=== PATIENT | male | born 1940 | race Caucasian/White ===

== ENCOUNTER 2017-01-08 23:49 | Inpatient (IN) | payer MEDICARE ==
[~2017-01-08] VITALS: Ht 188 cm; Wt 90.4 kg
[2017-01-08 23:59] VITALS: BP 102/67; PULSE 129; RESP 20; TEMP 102.3; O2SAT 91
[2017-01-09] VITALS (18 sets, daily range): BP systolic 85–140; BP diastolic 52–86; PULSE 57–106; RESP 14–24; TEMP 98.1–102.6; O2SAT 91–98
[2017-01-09] MEDS ORDERED: FINA5TAB2 PO (00:23)
[2017-01-09] MEDS ORDERED: TAMS0.4C4 PO (00:23)
[2017-01-09] MEDS: ACETAMINOPHEN 325 MG TAB PO ONE ×2 (00:45→01:22)
[2017-01-09] MEDS: ONDANSETRON HCL 4 MG/2 ML VIAL IV ONE ×2 (00:45→01:22)
--- NOTE | 2017-01-09 00:48 | PD ---
HPI Chief Complaint: Fever Time Seen by Provider: 00:24 Travel History International Travel<30 days: No Contact w/Intl Traveler<30days: No Traveled to known affect area: No History of Present Illness HPI The patient is a 76-year-old male that began shaking this afternoon. He also noted hematuria. He has a minimal cough. He denies any abdominal pain, diarrhea, chest pain, shortness of breath, dysuria. He does have frequency of urination. He does have an enlarged prostate. PFSH Past Medical History Cardiovascular Problems: Yes (HTN) Tetanus Vaccination: < 5 Years Influenza Vaccination: Yes Social History Alcohol Use: Yes (2 drinks daily) Tobacco Use: No Substance Use: No Allergies-Medications (Allergen,Severity, Reaction): Coded Allergies: Penicillin (Verified Allergy, Mild, Hives, 01/09/17) Patient stated hive without respiratory effects. Reported Meds & Prescriptions Reported Meds & Active Scripts Active Reported Hydrochlorothiazide 12.5 Mg Cap 12.5 Mg PO DAILY Finasteride 5 Mg Tab 5 Mg PO DAILY Do not crush. Tamsulosin (Tamsulosin HCl) 0.4 Mg Cap 0.4 Mg PO DAILY Review of Systems Except as stated in HPI: all other systems reviewed are Neg Physical Exam Narrative GENERAL: The patient is alert, oriented 3, feeling generally weak and has barely enough strength to sit up in bed. His vital signs show temperature 102.3 with blood pressure 102/67 and heart rate of 129. Oximetry is 91%. Repeat vital signs reveal an oximetry of 94% and blood pressure 112/74 with heart rate of 106. SKIN: Warm and dry. No skin rash is seen. HEAD: Atraumatic. Normocephalic. EYES: Pupils equal and round. No scleral icterus. No injection or drainage. ENT: No nasal bleeding or discharge. Mucous membranes pink and moist. The tympanic membranes are clear and the throat is clear without erythema, abscess or exudate. NECK: Trachea midline. No JVD. There is no meningismus and the patient flexes neck fully without any hesitation. CARDIOVASCULAR: Regular rate and rhythm. No murmur appreciated. RESPIRATORY: No accessory muscle use. Clear to auscultation. Breath sounds equal bilaterally. GASTROINTESTINAL: Abdomen soft, non-tender, nondistended. Hepatic and splenic margins not palpable. No guarding or rebound is present. MUSCULOSKELETAL: No obvious deformities. No clubbing. No cyanosis. No edema. NEUROLOGICAL: Awake and alert. No obvious cranial nerve deficits. Motor grossly within normal limits. Normal speech. PSYCHIATRIC: Appropriate mood and affect; insight and judgment normal. Data Data Last Documented VS Vital Signs Date Time Temp Pulse Resp B/P Pulse Ox O2 Delivery O2 Flow Rate FiO2 01/09/17 01:48 106 22 114/75 92 Nasal Cannula 2 01/09/17 00:43 101.2 Orders Electrocardiogram (01/09/17 00:41) Complete Blood Count With Diff (01/09/17 00:41) Comprehensive Metabolic Panel (01/09/17 00:41) Lactic Acid Sepsis Protocol (01/09/17 00:41) Lipase (01/09/17 00:41) Ckmb (Isoenzyme) Profile (01/09/17 00:41) Troponin I (01/09/17 00:41) Urinalysis - C+S If Indicated (01/09/17 00:41) Influenzae A/B Antigen (01/09/17 00:41) Blood Culture (01/09/17 00:41) Chest, Single Ap (01/09/17 00:41) Ecg Monitoring (01/09/17 00:41) Iv Access Insert/Monitor (01/09/17 00:41) Oximetry (01/09/17 00:41) Oxygen Administration (01/09/17 00:41) Acetaminophen (Tylenol) (01/09/17 00:45) Ondansetron Inj (Zofran Inj) (01/09/17 00:45) Urine Culture (01/09/17 00:57) Potassium Chloride (Kcl) (01/09/17 02:15) Sodium Chlor 0.9% 1000 Ml Inj (Ns 1000 M (01/09/17 02:15) Labs Laboratory Tests Test 01/09/17 01/09/17 00:57 01:07 White Blood Count 14.4 TH/MM3 Red Blood Count 4.86 MIL/MM3 Hemoglobin 15.1 GM/DL Hematocrit 45.3 % Mean Corpuscular Volume 93.2 FL Mean Corpuscular Hemoglobin 31.1 PG Mean Corpuscular Hemoglobin 33.4 % Concent Red Cell Distribution Width 12.6 % Platelet Count 169 TH/MM3 Mean Platelet Volume 7.3 FL Neutrophils (%) (Auto) 89.3 % Lymphocytes (%) (Auto) 2.8 % Monocytes (%) (Auto) 4.3 % Eosinophils (%) (Auto) 0.0 % Basophils (%) (Auto) 3.6 % Neutrophils # (Auto) 12.9 TH/MM3 Lymphocytes # (Auto) 0.4 TH/MM3 Monocytes # (Auto) 0.6 TH/MM3 Eosinophils # (Auto) 0.0 TH/MM3 Basophils # (Auto) 0.5 TH/MM3 CBC Comment AUTO DIFF Differential Comment AUTO DIFF CONFIRMED Platelet Estimate NORMAL Platelet Morphology Comment NORMAL Red Cell Morphology Comment NORMAL Urine Color YELLOW Urine Turbidity CLOUDY Urine pH 6.5 Urine Specific [place] 1.017 Urine Protein NEG mg/dL Urine Glucose (UA) NEG mg/dL Urine Ketones TRACE mg/dL Urine Occult Blood MOD Urine Nitrite NEG Urine Bilirubin NEG Urine Leukocyte Esterase MOD Urine RBC 4-9 /hpf Urine WBC 25-49 /hpf Urine Squamous Epithelial 6-8 /hpf Cells Urine Bacteria MANY /hpf Microscopic Urinalysis Comment CULTURE INDICATED Sodium Level 137 MEQ/L Potassium Level 3.1 MEQ/L Chloride Level 97 MEQ/L Carbon Dioxide Level 28.8 MEQ/L Anion Gap 11 MEQ/L Blood Urea Nitrogen 14 MG/DL Creatinine 1.20 MG/DL Estimat Glomerular Filtration 59 ML/MIN Rate Random Glucose 114 MG/DL Calcium Level 8.6 MG/DL Total Bilirubin 1.3 MG/DL Aspartate Amino Transf 13 U/L (AST/SGOT) Alanine Aminotransferase 18 U/L (ALT/SGPT) Alkaline Phosphatase 67 U/L Total Creatine Kinase 44 U/L Troponin I 0.02 NG/ML Total Protein 7.3 GM/DL Albumin 3.4 GM/DL Lipase 80 U/L Lactic Acid Level 2.8 mmol/L [facility] Medical Decision Making Medical Screen Exam Complete: Yes Emergency Medical Condition: Yes Medical Record Reviewed: Yes Interpretation(s) EKG shows sinus tachycardia with a rate of [address] elevation or depression. The CBC shows a white count of 14,400 with 89% neutrophils. The complete metabolic profile shows potassium of 3.1, GFR 59, lactic acid of 2.8, total bilirubin of 1.3 but is otherwise unremarkable. The lipase is normal. The urine shows cloudy turbidity, trace ketones, moderate occult blood, moderate leukocyte esterase with 4-9 red cells and 25-49 white cells and many bacteria and culture is indicated. Differential Diagnosis Sepsis, urosepsis, pneumonia, dehydration, myocardial infarction, renal insufficiency, electrolyte disorder Narrative Course The patient has urosepsis. Plan: The patient is nauseated when he sits up. He also is generally weak and cannot sit up for very long. The patient needs admission for IV hydration, IV antibiotics and general care. The family has no local primary care physician, they're from [place]. Procedures EKG Prior to Arrival: No Sepsis Criteria SIRS Criteria (2 or more): Temp > 100.9 or < 96.8, Heart rate over 90, RR > 20 or PaCO2 < 32, WBC > 60272, < 4000 or > 10% bands Sepsis Criteria (SIRS+source): Infect source susp/known Severe Sepsis (+one): Lactate >2 Physician Communication Physician Communication I discussed the patient with Dr. Daniel, the patient will be admitted to her. Diagnosis Primary Impression: Sepsis Additional Impressions: Hypokalemia Pyelonephritis Jose Jones MD Jan 09, 2017 00:48
[2017-01-09] MEDS ORDERED: HYDR12.57 PO (00:49)
[2017-01-09 01:16] LABS: AUTOMATED NEUTROPHIL # 12.9 TH/MM3 (1.8-7.7); BASOPHIL # 0.5 TH/MM3 (0-0.2); BASOPHIL % 3.6 % (0.0-2.0); HEMATOCRIT 45.3 % (39.0-51.0); LYMPH % 2.8 % (9.0-44.0); LYMPHOCYTE # 0.4 TH/MM3 (1.0-4.8); MEAN CELL VOLUME 93.2 FL (80.0-100.0); MEAN CORPUSCULAR HEMOGLOBIN 31.1 PG (27.0-34.0); MEAN CORPUSCULAR HGB CONC 33.4 % (32.0-36.0); MONO % 4.3 % (0.0-8.0); NEUT % 89.3 % (16.0-70.0); PLATELET COUNT 169 TH/MM3 (150-450); RED BLOOD COUNT 4.86 MIL/MM3 (4.50-5.90); RED CELL DISTRIBUTION WIDTH 12.6 % (11.6-17.2); WHITE BLOOD COUNT 14.4 TH/MM3 (4.0-11.0)
[2017-01-09 01:17] LABS: GLUCOSE,URINE NEG (NEG); KETONE, URINE TRACE mg/dL (NEG); NITRITE,URINE NEG (NEG); PH, URINE 6.5 (5.0-8.5)
[2017-01-09 01:23] LABS: HEMO FLAGS AUTO DIFF
[2017-01-09 01:25] LABS: CHLORIDE 97 MEQ/L (98-107); POTASSIUM 3.1 MEQ/L (3.5-5.1); SODIUM (NA) 137 MEQ/L (136-145)
--- NOTE | 2017-01-09 01:27 | RADHPO ---
EXAM DATE/TIME: 01/09/2017 01:20 [place] COMPARISON: No previous studies available for comparison. INDICATIONS : Fever starting today MEDICAL HISTORY : None. SURGICAL HISTORY : None. ENCOUNTER: Initial ACUITY: 1 day PAIN SCORE: 0/10 LOCATION: Bilateral chest FINDINGS: A single view of the chest demonstrates the lungs to be symmetrically aerated without evidence of mas s, infiltrate or effusion. The cardiomediastinal contours are unremarkable. Osseous structures are intact. CONCLUSION: No acute disease. Rick Burr MD on January 09, 2017 at 1:25 Board Certified Radiologist. This report was verified electronically.
[2017-01-09 01:29] LABS: ANION GAP 11 MEQ/L (5-15); BICARBONATE 28.8 MEQ/L (21.0-32.0); BLOOD UREA NITROGEN 14 MG/DL (7-18); BLOOD, URINE MOD (NEG)
[2017-01-09 01:30] LABS: BACTERIA, URINE MANY /hpf; COMMENT (UR) CULTURE INDICATED; CULTURE IF INDICATED CULTURE INDICATED; URINE COLOR YELLOW (YELLW/STRAW)
[2017-01-09 01:32] LABS: ALT (GPT) 18 U/L (12-78); AST (GOT) 13 U/L (15-37); GLOMERULAR FILTRATION RATE 59 ML/MIN (>89)
[2017-01-09 01:33] LABS: TOTAL BILIRUBIN ADULT 1.3 MG/DL (0.2-1.0)
[2017-01-09 01:35] LABS: ALKALINE PHOSPHATASE 67 U/L (45-117)
[2017-01-09 01:37] LABS: CREATINE KINASE 44 U/L (39-308); PLATELET ESTIMATE SMEAR NORMAL (NORMAL); PLATELET MORPHOLOGY NORMAL (NORMAL); SCAN/DIFF AUTO DIFF CONFIRMED
[2017-01-09] MEDS: SODIUM CHLOR 0.9% 1000 ML INJ 1,000 ML IV SCH ×5 (02:11→22:21)
[2017-01-09] MEDS ORDERED: ACETAMINOPHEN 325 MG TAB PO PRN (02:15)
[2017-01-09] MEDS ORDERED: ONDANSETRON HCL 4 MG/2 ML VIAL IVP PRN (02:15)
[2017-01-09] MEDS ORDERED: ACETAMINOPHEN/HYDROcodone 325 MG/7.5 MG TAB PO PRN (02:15)
[2017-01-09] MEDS ORDERED: ACETAMINOPHEN/HYDROcodone 325 MG/5 MG TAB PO PRN (02:15)
[2017-01-09] MEDS ORDERED: BISACODYL 10 MG SUPP PR PRN (02:15)
[2017-01-09] MEDS ORDERED: LEVOFLOXACIN 750 MG PREMIX INJ 150 ML IV ONE (02:15)
[2017-01-09] MEDS ORDERED: POTASSIUM CHLORIDE 20 MEQ CONTROLLED RELEASE TAB PO ONE ×2 (02:15→02:30)
[2017-01-09 03:10] LABS: LACTIC ACID GHOST NOT REPORTABLE
[2017-01-09] MEDS ORDERED: SODIUM CHLOR 0.9% 1000 ML INJ 1,000 ML IV ONE (03:45)
[2017-01-09] MEDS ORDERED: MISCELLANEOUS NURSING INFORMATION XX SCH (03:45)
[2017-01-09] MEDS ORDERED: CHLORHEXIDINE GLUCONATE 2 % 1 PACK (2 CLOTHS) TOP PRN (03:45)
[2017-01-09] MEDS ORDERED: CHLORHEXIDINE GLUCONATE 2 % 1 PACK (2 CLOTHS) TOP SCH (04:00)
[2017-01-09] MEDS: SODIUM CHLORIDE 0.9% FLUSH 5 ML FLUSH FLUSH SCH ×2 (08:17→22:21)
--- NOTE | 2017-01-09 13:39 | HHI.HP ---
[facility] Service [facility] Primary Care Physician Non-Staff Admission Diagnosis sepsis, pyelonephritis, dehydration, electrolyte disorder Diagnoses: Chief Complaint: Fever Travel History International Travel<30 Days: No Contact w/Intl Traveler <30 Da: No Traveled to Known Affected Are: No Sepsis Criteria SIRS Criteria (2 or more): Temp > 100.9 or < 96.8, Heart rate over 90, WBC > 20493, < 4000 or > 10% bands Sepsis Criteria (SIRS+source): Infect source susp/known Severe Sepsis (+one): Hypotension Criteria Outcome: Meets sepsis criteria History of Present Illness Patient is a very pleasant 76-year-old gentleman with a history of benign prostatic hyperplasia and episodes of urinary retention. For the last 24 hours patient had some chills and fever at home with associated hematuria and bladder discomfort. He came to the emergency room and was found to be febrile at 102.3 , hypotensive with elevated lactic acid and elevated white cell count. Patient appears to have severe sepsis with urinary tract infection. Patient was admitted over night with antibiotics and IV fluids and appears to have improved quite nicely. He has no further chills and his temperature is improved. Patient does have no other complaints. Pain in his bladder was mild and improved with urination. Review of Systems Constitutional: COMPLAINS OF: Fever, Chills, Dizziness, DENIES: Diaphoretic episodes, Fatigue, Weight gain, Weight loss, Change in appetite, Night Sweats Endocrine: DENIES: Heat/cold intolerance, Polydipsia, Polyuria, Polyphagia Eyes: DENIES: Blurred vision, Diplopia, Eye inflammation, Eye pain, Vision loss , Photosensitivity, Double Vision Ears, nose, mouth, throat: DENIES: Tinnitus, Hearing loss, Vertigo, Nasal discharge, Oral lesions, Throat pain, Hoarseness, Ear Pain, Running Nose, Epistaxis, Sinus Pain, Toothache, Odynophagia Respiratory: DENIES: Apneas, Cough, Snoring, Wheezing, Hemoptysis, Sputum production, Shortness of breath Cardiovascular: DENIES: Chest pain, Palpitations, Syncope, Dyspnea on Exertion , PND, Lower Extremity Edema, Orthopnea, Claudication Genitourinary: COMPLAINS OF: Urinary frequency, Urinary incontinence, Urgency, Hematuria Musculoskeletal: DENIES: Joint pain, Muscle aches, Stiffness, Joint Swelling, Back pain, Neck pain Integumentary: DENIES: Abnormal pigmentation, Nail changes, Pruritus, Rash Hematologic/lymphatic: DENIES: Bruising, Lymphadenopathy Immunologic/allergic: DENIES: Eczema, Urticaria Neurologic: DENIES: Abnormal gait, Headache, Localized weakness, Paresthesias, Seizures, Speech Problems, Tremor, Poor Balance Psychiatric: DENIES: Anxiety, Confusion, Mood changes, Depression, Hallucinations, Agitation, Suicidal Ideation, Homicidal Ideation, Delusions Past Family Social History Past Medical History benign prostatic hyperplasia Past Surgical History Orthopedic Reported Medications Reviewed in the medical record Allergies: Coded Allergies: Penicillin (Verified Allergy, Mild, Hives, 01/09/17) Patient stated hive without respiratory effects. Active Ordered Medications Reviewed in the medical record Family History Father had colon cancer Social History From [place], visiting, no tobacco or alcohol dependency, Physical Exam Vital Signs Vital Signs Date Time Temp Pulse Resp B/P Pulse Ox O2 Delivery O2 Flow Rate FiO2 01/09/17 12:59 63 17 110/78 96 Nasal Cannula 2 01/09/17 11:49 98.1 60 14 90/52 98 Nasal Cannula 2 01/09/17 10:41 Room Air 2 01/09/17 10:18 98.4 61 17 140/68 97 Room Air 2 01/09/17 08:55 64 14 107/64 98 Nasal Cannula 2 01/09/17 08:28 57 17 85/63 97 Nasal Cannula 2 01/09/17 07:10 98.2 64 17 95/62 93 Nasal Cannula 2 01/09/17 07:10 93 Nasal Cannula 2 01/09/17 07:10 64 93 Nasal Cannula 2 01/09/17 04:43 98.6 77 16 99/64 95 Nasal Cannula 2 01/09/17 04:40 16 95 Nasal Cannula 2 01/09/17 03:29 99.7 90 20 94/61 91 Nasal Cannula 2 01/09/17 02:43 90 20 101/61 95 Nasal Cannula 2 01/09/17 01:48 106 22 114/75 92 Nasal Cannula 2 01/09/17 01:47 92 Nasal Cannula 2 01/09/17 01:42 106 20 107/66 94 Nasal Cannula 2 01/09/17 01:33 102.6 104 20 114/75 95 Nasal Cannula 2 01/09/17 00:43 101.2 105 20 137/86 97 Room Air 01/09/17 00:24 94 Room Air 01/09/17 00:11 106 24 112/74 94 01/08/17 23:59 102.3 129 20 102/67 91 Physical Exam GENERAL: This is a well-nourished, well-developed patient, in no apparent distress. SKIN: No rashes, ecchymoses or lesions. Cool and dry. HEAD: Atraumatic. Normocephalic. No temporal or scalp tenderness. EYES: Pupils equal round and reactive. Extraocular motions intact. No scleral icterus. No injection or drainage. ENT: Nose without bleeding, purulent drainage or septal hematoma. Throat without erythema, tonsillar hypertrophy or exudate. Uvula midline. Airway patent. NECK: Trachea midline. No JVD or lymphadenopathy. Supple, nontender, no meningeal signs. CARDIOVASCULAR: Regular rate and rhythm without murmurs, gallops, or rubs. RESPIRATORY: Clear to auscultation. Breath sounds equal bilaterally. No wheezes , rales, or rhonchi. GASTROINTESTINAL: Abdomen soft, non-tender, nondistended. No hepato-splenomegaly , or palpable masses. No guarding. MUSCULOSKELETAL: Extremities without clubbing, cyanosis, or edema. No joint tenderness, effusion, or edema noted. No calf tenderness. Negative Homans sign bilaterally. NEUROLOGICAL: Awake and alert. Cranial nerves II through XII intact. Motor and sensory grossly within normal limits. Five out of 5 muscle strength in all muscle groups. Normal speech. Laboratory Laboratory Tests Test 01/09/17 01/09/17 01/09/17 00:57 01:07 03:42 White Blood Count 14.4 Red Blood Count 4.86 Hemoglobin 15.1 Hematocrit 45.3 Mean Corpuscular Volume 93.2 Mean Corpuscular Hemoglobin 31.1 Mean Corpuscular Hemoglobin 33.4 Concent Red Cell Distribution Width 12.6 Platelet Count 169 Mean Platelet Volume 7.3 Neutrophils (%) (Auto) 89.3 Lymphocytes (%) (Auto) 2.8 Monocytes (%) (Auto) 4.3 Eosinophils (%) (Auto) 0.0 Basophils (%) (Auto) 3.6 Neutrophils # (Auto) 12.9 Lymphocytes # (Auto) 0.4 Monocytes # (Auto) 0.6 Eosinophils # (Auto) 0.0 Basophils # (Auto) 0.5 CBC Comment AUTO DIFF Differential Comment AUTO DIFF CONFIRMED Platelet Estimate NORMAL Platelet Morphology Comment NORMAL Red Cell Morphology Comment NORMAL Urine Color YELLOW Urine Turbidity CLOUDY Urine pH 6.5 Urine Specific [place] 1.017 Urine Protein NEG Urine Glucose (UA) NEG Urine Ketones TRACE Urine Occult Blood MOD Urine Nitrite NEG Urine Bilirubin NEG Urine Leukocyte Esterase MOD Urine RBC 4-9 Urine WBC 25-49 Urine Squamous Epithelial 6-8 Cells Urine Bacteria MANY Microscopic Urinalysis Comment CULTURE INDICATED Sodium Level 137 Potassium Level 3.1 Chloride Level 97 Carbon Dioxide Level 28.8 Anion Gap 11 Blood Urea Nitrogen 14 Creatinine 1.20 Estimat Glomerular Filtration 59 Rate Random Glucose 114 Calcium Level 8.6 Total Bilirubin 1.3 Aspartate Amino Transf 13 (AST/SGOT) Alanine Aminotransferase 18 (ALT/SGPT) Alkaline Phosphatase 67 Total Creatine Kinase 44 Troponin I 0.02 Total Protein 7.3 Albumin 3.4 Lipase 80 Lactic Acid Level 2.8 1.2 Date/Time Procedure Status Source Growth 01/09/17 01:05 Aerobic Blood Culture Received Blood Peripheral Pending 01/09/17 01:05 Anaerobic Blood Culture Received Blood Peripheral Pending 01/09/17 00:57 Urine Culture Received Urine Clean Catch Pending 01/09/17 00:57 Influenza Types A,B Antigen (BETSY) - Final Complete Nasal Aspirate NEGATIVE FOR FLU A AND B ANTIGEN.... Result Diagram: 01/09/17 0057 01/09/17 005 Imaging Last Impressions Chest X-Ray 01/09/17 0041 Signed Impressions: Service Date/Time: Monday, January 09, 2017 01:20 - CONCLUSION: No acute disease. Rick Burr MD Septic Shock Reassessment Heart: Regular rate and rhythm Lungs: Clear Skin: Warm Peripheral Pulses: Bounding Right Radial Bounding Left Radial Bounding Right Popliteal Bounding Left Popliteal Bounding Right Dorsalis Pedis Bounding Left Dorsalis Pedis Bounding Right Posterior Tibial Bounding Left Posterior Tibial Capillary Refill: Brisk Assessment and Plan Problem List: (1) Sepsis ICD Code: A41.9 Status: Acute Plan: Secondary to UTI. Patient with fever 102.3, hypotension noted lactic acid and leukocytosis. These appear improved today. We'll continue with empiric antibiotics and follow cultures (2) UTI (urinary tract infection) ICD Code: N39.0 Status: Acute Plan: Urine cultures are pending, continue Levaquin for now Assessment and Plan Plan of care to be determined by Hospital course Code Status full code Discussed Condition With Patient, spouse Physician Certification 2 Midnight Certification Type: Admission for Inpatient Services Order for Inpatient Services The services are ordered in accordance with Medicare regulations or non- Medicare payer requirements, as applicable. In the case of services not specified as inpatient-only, they are appropriately provided as inpatient services in accordance with the 2-midnight benchmark. Estimated LOS (days): 3 3 days is the estimated time the patient will need to remain in the hospital, assuming treatment plan goals are met and no additional complications. Post-Hospital Plan: [place] Nubia Duffy MD Jan 09, 2017 13:39
[2017-01-09] MEDS: TAMSULOSIN HCL 0.4 MG CAP PO SCH (14:08)
[2017-01-09] MEDS: FINASTERIDE 5 MG TAB PO SCH (14:08)
--- NOTE | 2017-01-09 17:26 | EKG ---
Date Performed: 01/09/2017 Time Performed: 00:49:30 PTAGE: 76 years EKG: Sinus tachycardia Left axis deviation Borderline ECG NO PREVIOUS TRACING DOCTOR: Kim Diaz Interpretating Date/Time 01/09/2017 17:18:18
[2017-01-09] MEDS: LEVOFLOXACIN 750 MG PREMIX INJ 150 ML IV SCH (22:21)
[2017-01-10] VITALS (7 sets, daily range): BP systolic 114–141; BP diastolic 65–86; PULSE 52–72; RESP 12–17; TEMP 98.2–98.7; O2SAT 92–97
[2017-01-10 06:47] LABS: AUTOMATED NEUTROPHIL # 7.9 TH/MM3 (1.8-7.7); BASOPHIL % 0.2 % (0.0-2.0); EOSINOPHIL # 0.1 TH/MM3 (0-0.4); EOSINOPHIL % 0.7 % (0.0-4.0); HEMATOCRIT 37.5 % (39.0-51.0); LYMPH % 10.9 % (9.0-44.0); LYMPHOCYTE # 1.1 TH/MM3 (1.0-4.8); MEAN CELL VOLUME 93.7 FL (80.0-100.0); MEAN CORPUSCULAR HEMOGLOBIN 31.2 PG (27.0-34.0); MEAN CORPUSCULAR HGB CONC 33.3 % (32.0-36.0); MONO % 6.9 % (0.0-8.0); NEUT % 81.3 % (16.0-70.0); PLATELET COUNT 133 TH/MM3 (150-450); RED BLOOD COUNT 4.01 MIL/MM3 (4.50-5.90); RED CELL DISTRIBUTION WIDTH 12.8 % (11.6-17.2); WHITE BLOOD COUNT 9.8 TH/MM3 (4.0-11.0)
[2017-01-10 07:00] LABS: HEMO FLAGS DIFF FINAL
[2017-01-10 07:22] LABS: ALKALINE PHOSPHATASE 47 U/L (45-117); ALT (GPT) 21 U/L (12-78); ANION GAP 8 MEQ/L (5-15); AST (GOT) 18 U/L (15-37); BICARBONATE 27.1 MEQ/L (21.0-32.0); BLOOD UREA NITROGEN 17 MG/DL (7-18); CHLORIDE 108 MEQ/L (98-107); GLOMERULAR FILTRATION RATE 103 ML/MIN (>89); POTASSIUM 3.5 MEQ/L (3.5-5.1); SODIUM (NA) 143 MEQ/L (136-145); TOTAL BILIRUBIN ADULT 0.8 MG/DL (0.2-1.0)
[2017-01-10] MEDS: FINASTERIDE 5 MG TAB PO SCH (08:19)
[2017-01-10] MEDS: SODIUM CHLORIDE 0.9% FLUSH 5 ML FLUSH FLUSH SCH ×2 (08:19→21:33)
[2017-01-10] MEDS: SODIUM CHLOR 0.9% 1000 ML INJ 1,000 ML IV SCH (08:19)
[2017-01-10] MEDS: TAMSULOSIN HCL 0.4 MG CAP PO SCH (08:19)
--- NOTE | 2017-01-10 13:14 | HHI.PR ---
Subjective Remarks Patient seen and evaluated in follow-up for UTI with sepsis. Much better today. No further fever. Leukocytosis improved patient has little bit of hypoxemia likely one overload Objective Vitals Vital Signs Date Time Temp Pulse Resp B/P Pulse Ox O2 Delivery O2 Flow Rate FiO2 01/10/17 13:00 52 14 01/10/17 12:17 98.2 60 16 141/86 92 01/10/17 08:00 95 Nasal Cannula 3.00 01/10/17 08:00 57 01/10/17 08:00 98.4 62 12 138/84 96 01/10/17 04:00 98.6 56 13 131/83 97 01/10/17 00:00 98.4 62 17 114/74 96 01/09/17 23:41 96 Nasal Cannula 3.00 01/09/17 20:00 95 Nasal Cannula 2.00 01/09/17 20:00 98.6 64 16 94/55 96 01/09/17 17:49 98.4 64 14 115/76 96 Nasal Cannula 2 01/09/17 17:07 Nasal Cannula 2 01/09/17 16:33 98.9 64 17 105/70 96 Nasal Cannula 2 01/09/17 14:40 Nasal Cannula 2 01/09/17 14:12 98.9 65 14 103/61 98 Nasal Cannula 2 I/O 01/09/17 01/09/17 01/09/17 01/10/17 01/10/17 01/10/17 07:00 15:00 23:00 07:00 15:00 23:00 Intake Total 2150 ml 786 ml 795 ml Output Total 100 ml 450 ml 200 ml 500 ml Balance 2050 ml -450 ml 586 ml 295 ml Intake Oral 240 ml 120 ml IV Total 2150 ml 546 ml 675 ml Output Urine Total 100 ml 450 ml 200 ml 500 ml Stool Total 0 ml 0 ml # Voids 1 2 3 Result Diagram: 01/10/17 0543 01/10/17 0543 Objective Remarks GENERAL: This is a well-nourished, well-developed patient, in no apparent distress. CARDIOVASCULAR: Regular rate and rhythm without murmurs, gallops, or rubs. Respiratory: Basilar crackles Clear to auscultation. Breath sounds equal bilaterally. No wheezes, rales, or rhonchi. GASTROINTESTINAL: Abdomen soft, non-tender, nondistended. Normal active bowel sounds MUSCULOSKELETAL: Extremities without clubbing, cyanosis, or edema. NEURO: Alert & Oriented x4 to person, place, time, situation. Moves all ext x4 A/P Problem List: (1) Sepsis ICD Code: A41.9 Status: Acute Plan: Secondary to UTI. We will fever and leukocytosis improved (2) UTI (urinary tract infection) ICD Code: N39.0 Status: Acute Plan: Continue Levaquin for streptococcal viridian, final sensitivities pending (3) Hypoxemia ICD Code: R09.02 Status: Acute Plan: Patient with some hypoxemia likely due to volume overload. We'll add some Lasix DC IV fluids Discharge Planning Likely home one to 2 days on oral antibiotics Nubia Duffy MD Jan 10, 2017 13:14
[2017-01-10] MEDS ORDERED: FUROSEMIDE 20 MG/2 ML VIAL IV PUSH ONE (14:00)
[2017-01-10] MEDS: SODIUM CHLORIDE 0.9% FLUSH 5 ML FLUSH FLUSH PRN (14:24)
[2017-01-11] MEDS: LEVOFLOXACIN 750 MG PREMIX INJ 150 ML IV SCH ×2 (00:03→23:21)
[2017-01-11 00:08] VITALS: BP 139/86; PULSE 68; RESP 16; TEMP 98.6; O2SAT 94
[2017-01-11 04:00] VITALS: BP 124/75; PULSE 65; RESP 16; TEMP 98.2; O2SAT 93
[2017-01-11 08:00] VITALS: BP 144/88; PULSE 58; RESP 17; TEMP 97.9; O2SAT 96
--- NOTE | 2017-01-11 08:45 | HHI.PR ---
Subjective Remarks Patient seen and evaluated today in follow-up for UTI with sepsis. Doing much better. No new complaints. Objective Vitals Vital Signs Date Time Temp Pulse Resp B/P Pulse Ox O2 Delivery O2 Flow Rate FiO2 01/11/17 04:00 98.2 65 16 124/75 93 01/11/17 00:08 98.6 68 16 139/86 94 01/10/17 20:00 98.7 72 16 117/65 93 01/10/17 20:00 93 Room Air 01/10/17 16:00 62 16 140/69 93 01/10/17 13:00 52 14 01/10/17 12:17 98.2 60 16 141/86 92 I/O 01/10/17 01/10/17 01/10/17 01/11/17 01/11/17 01/11/17 07:00 15:00 23:00 07:00 15:00 23:00 Intake Total 795 ml 1007 ml 480 ml 380 ml Output Total 500 ml 750 ml 1500 ml 1800 ml Balance 295 ml 257 ml -1020 ml -1420 ml Intake Oral 120 ml 320 ml 480 ml 220 ml IV Total 675 ml 687 ml 160 ml Output Urine Total 500 ml 750 ml 1500 ml 1800 ml Stool Total 0 ml 0 ml # Voids 3 3 # Bowel Movements 1 Result Diagram: 01/10/17 0543 01/10/1743 Objective Remarks GENERAL: This is a well-nourished, well-developed patient, in no apparent distress. CARDIOVASCULAR: Regular rate and rhythm without murmurs, gallops, or rubs. Respiratory: Basilar crackles Clear to auscultation. Breath sounds equal bilaterally. No wheezes, rales, or rhonchi. GASTROINTESTINAL: Abdomen soft, non-tender, nondistended. Normal active bowel sounds MUSCULOSKELETAL: Extremities without clubbing, cyanosis, or edema. NEURO: Alert & Oriented x4 to person, place, time, situation. Moves all ext x4 A/P Problem List: (1) Sepsis ICD Code: A41.9 Status: Resolved Plan: Resolving Secondary to UTI. Fever and leukocytosis resolved (2) UTI (urinary tract infection) ICD Code: N39.0 Status: Acute Plan: Continue Levaquin for streptococcal viridian, final sensitivities pending (3) Hypoxemia ICD Code: R09.02 Status: Acute Plan: Resolved resume home bp med/hctz Discharge Planning Likely home in a.m. pending culture sensitivities Nubia Duffy MD Jan 11, 2017 08:45
[2017-01-11] MEDS: SODIUM CHLORIDE 0.9% FLUSH 5 ML FLUSH FLUSH SCH ×2 (09:08→20:01)
[2017-01-11] MEDS: TAMSULOSIN HCL 0.4 MG CAP PO SCH (09:08)
[2017-01-11] MEDS: FINASTERIDE 5 MG TAB PO SCH (09:08)
[2017-01-11] MEDS: HYDROCHLOROTHIAZIDE 12.5 MG CAP PO SCH (09:08)
[2017-01-11 12:00] VITALS: BP 119/72; PULSE 67; RESP 18; TEMP 97.9; O2SAT 93
[2017-01-11 16:00] VITALS: BP 107/62; PULSE 72; RESP 14; TEMP 98.1; O2SAT 95
[2017-01-11 20:00] VITALS: BP 137/82; PULSE 68; RESP 22; TEMP 98.4; O2SAT 95
[2017-01-11] MEDS: SODIUM CHLORIDE 0.9% FLUSH 5 ML FLUSH FLUSH PRN (23:21)
[2017-01-12] VITALS: BP 138/83; PULSE 61; RESP 22; TEMP 98.4; O2SAT 93
[2017-01-12 04:00] VITALS: BP 135/77; PULSE 60; RESP 22; TEMP 98.5; O2SAT 98
[2017-01-12 07:23] VITALS: BP 130/72; PULSE 68; RESP 22; TEMP 98.2; O2SAT 98
[2017-01-12] MEDS: FINASTERIDE 5 MG TAB PO SCH (09:20)
[2017-01-12] MEDS: SODIUM CHLORIDE 0.9% FLUSH 5 ML FLUSH FLUSH SCH (09:20)
[2017-01-12] MEDS: TAMSULOSIN HCL 0.4 MG CAP PO SCH (09:20)
[2017-01-12] MEDS: HYDROCHLOROTHIAZIDE 12.5 MG CAP PO SCH (09:20)
[2017-01-12] MEDS ORDERED: LEVA750T PO (10:23)
--- NOTE | 2017-01-12 10:23 | HHI.DCPOC ---
Discharge Care Plan Diagnosis: (1) UTI (urinary tract infection) (2) Sepsis Goals to Promote Your Health * To prevent worsening of your condition and complications * To maintain your health at the optimal level Directions to Meet Your Goals Take your medications as prescribed Follow your dietary instruction Follow activity as directed Keep your appointments as scheduled Take your immunizations and boosters as scheduled If your symptoms worsen call your PCP, if no PCP go to Urgent Care Center or Emergency Room Smoking is Dangerous to Your Health. Avoid second hand smoke Call the 24-hour hour crisis hotline for domestic abuse at Nubia Duffy MD Jan 12, 2017 10:23
--- NOTE | 2017-01-12 10:25 | HHI.DS ---
Discharge Summary Admission Date Jan 09, 2017 at 02:20 Discharge Date: Jan 12, 2017 Admitting Diagnosis sepsis, pyelonephritis, dehydration, electrolyte disorder (1) Sepsis ICD Code: A41.9 (2) UTI (urinary tract infection) ICD Code: N39.0 (3) Hypoxemia ICD Code: R09.02 Procedures none Brief History - From Admission Patient is a very pleasant 76-year-old gentleman with a history of benign prostatic hyperplasia and episodes of urinary retention. For the last 24 hours patient had some chills and fever at home with associated hematuria and bladder discomfort. He came to the emergency room and was found to be febrile at 102.3 , hypotensive with elevated lactic acid and elevated white cell count. Patient appears to have severe sepsis with urinary tract infection. Patient was admitted over night with antibiotics and IV fluids and appears to have improved quite nicely. He has no further chills and his temperature is improved. Patient does have no other complaints. Pain in his bladder was mild and improved with urination. CBC/BMP: 01/10/17 0543 01/10/17 0543 Significant Findings Laboratory Tests Test 01/10/17 05:43 Red Blood Count 4.01 MIL/MM3 (4.50-5.90) Hemoglobin 12.5 GM/DL (13.0-17.0) Hematocrit 37.5 % (39.0-51.0) Platelet Count 133 TH/MM3 (150-450) Neutrophils (%) (Auto) 81.3 % (16.0-70.0) Neutrophils # (Auto) 7.9 TH/MM3 (1.8-7.7) Chloride Level 108 MEQ/L (98-107) Calcium Level 7.9 MG/DL (8.5-10.1) Total Protein 5.7 GM/DL (6.4-8.2) Albumin 2.5 GM/DL (3.4-5.0) PE at Discharge GENERAL: This is a well-nourished, well-developed patient, in no apparent distress. CARDIOVASCULAR: Regular rate and rhythm without murmurs, gallops, or rubs. Respiratory: Basilar crackles Clear to auscultation. Breath sounds equal bilaterally. No wheezes, rales, or rhonchi. GASTROINTESTINAL: Abdomen soft, non-tender, nondistended. Normal active bowel sounds MUSCULOSKELETAL: Extremities without clubbing, cyanosis, or edema. NEURO: Alert & Oriented x4 to person, place, time, situation. Moves all ext x4 Pt update on day of discharge Seen and evaluated in follow-up for sepsis secondary to UTI. Doing much better today. Discharge plans discussed with patient and spouse and [employer] Hospital Course This patient is a 76-year-old gentleman did come in with sepsis/UTI likely dyscrasias. Patient was treated empirically with antibiotics. His cultures did grow out streptococcal [place] species. Patient did have blood cultures which appear to be contaminated. Patient did improve with IV fluids, antibiotics and medical management of sepsis. Pt Condition on Discharge: Good Discharge Disposition: Discharge Home Discharge Time: > 30 minutes Discharge Instructions DIET: Follow Instructions for: As Tolerated, No Restrictions Activities you can perform: Regular-No Restrictions Follow up Referrals: PCP Follow-up New Medications: Levofloxacin (Levaquin) 750 Mg Tab 750 MG PO DAILY Infection #6 Ref 0 TAB Continued Medications: Finasteride (Finasteride) 5 Mg Tab 5 MG PO DAILY Do not crush. Manage Prostate Problems #30 Ref 0 TAB Hydrochlorothiazide (Hydrochlorothiazide) 12.5 Mg Cap 12.5 MG PO DAILY #30 Ref 0 CAP Tamsulosin (Tamsulosin) 0.4 Mg Cap 0.4 MG PO DAILY Manage Prostate Problems #30 Ref 0 CAP Nubia Duffy MD Jan 12, 2017 10:25
== END 2017-01-12 10:44 | disposition home or self-care (01) | DRG 872 ==
LOC: PHED 23:49 → PHEDA 01-09 02:20 → PHEDH 01-09 06:40 → PHICU 01-09 18:35
PROVIDERS: ADMIT Hospitalist; ATTEND Hospitalist
DX: A41.9 Sepsis, unspecified organism (principal); E87.2 Acidosis; E87.79 Other fluid overload; E86.0 Dehydration; N10 Acute pyelonephritis; N40.1 Benign prostatic hyperplasia with lower urinary tract symptoms; R33.8 Other retention of urine; I10 Essential (primary) hypertension; E87.6 Hypokalemia; B95.4 Other streptococcus as the cause of diseases classified elsewhere
CPT/HCPCS: 71010; 80053; 81001; 82550; 83605; 83690; 84484; 85025; 87040; 87077; 87086; 87186; 87205; 87804; 93005; 96374; J1940; J1956; J2405; J7030